=== PATIENT | female | born 1930 | race Hispanic/Latino ===

== ENCOUNTER 2019-01-30 17:38 | Emergency (ER) | payer MEDICARE, OTHER ==
--- NOTE | 2019-01-30 18:13 | Emergency Department Report ---
ED Fall HPI - General Chief Complaint: Fall Stated Complaint: FALL/BUMP TO HEAD Time Seen by Provider: 01/30/19 17:48 Source: patient, EMS Mode of arrival: Stretcher Limitations: No Limitations - History of Present Illness Initial Comments: 88-year-old female with past medical history dementia, nonverbal, hypertension, and previous hip surgery presents from [facility] for fall. As per EMS patient bumped her head against the wall. No LOC reported. No further history of present illness available at this time. As per daughter patient walks with a walker at her baseline has had multiple recent falls. - Related Data Allergies Allergy/AdvReac Type Severity Reaction Status Date / Time No Known Allergies Allergy Verified 01/30/19 17:41 ED Review of Systems ROS: Stated complaint: FALL/BUMP TO HEAD Other details as noted in HPI Comment: Unobtainable due to pts medical conditions ED Past Medical Hx - Past Medical History Previous Medical History?: Yes Hx Hypertension: Yes Hx Dementia: Yes (non-verbal) - Surgical History Past Surgical History?: Yes Additional Surgical History: "hip" - Social History Smoking Status: Unknown if ever smoked ED Physical Exam - General Limitations: No Limitations - Other Other exam information: General: No acute distress Head: Right temporal scalp hematoma without laceration Eyes: Normal appearance, Pupils equal and reactive to light, extraocular movemen ts intact ENT: Normal oropharynx Neck: Normal appearance, no grimace of posterior palpation Chest: Clear to auscultation bilaterally, no wheezes, rales, or crackles CV: Regular rate and rhythm Abdomen: soft, nontender, nondistended, no rebound or guarding Back: Nontender Extremity: Normal inspection, full range of motion, nontender Neuro: Alert, nonverbal, makes eye contact, moves all extremities with equal strength and grossly intact sensation Skin: bruise to lateral left thigh, smaller bruise to right thigh ED Course Vital Signs 01/30/19 01/30/19 17:54 19:30 Temperature 98.1 F 98.3 F Pulse Rate 81 82 Respiratory 18 13 Rate Blood Pressure 113/87 123/72 [Left] O2 Sat by Pulse 100 100 Oximetry - Reevaluation(s) Reevaluation #1: 01/30/19 21:42 Daughter at bedside. She is a R in. She was informed that we are still waiting imaging results and patient would need to go back to CT for pelvis/hip CT. She was also formed of mild dehydration as indicated by last. I discussed case with weaving machine operator carbon setter with plan to admit overnight for hydration. Daughter denies admission and requests fluid in the ED with plan [facility]. Reevaluation #2: 01/30/19 22:49 RN not able to establish IV pt is a difficult stick daughter refused other attempts not that ct reports are back water and food provided. ED Medical Decision Making - Lab Data Result diagrams: 01/30/19 18:21 01/30/19 18:21 Lab Results 01/30/19 01/30/19 01/30/19 Range/Units 18:21 18:21 18:35 WBC 13.7 H (4.5-11.0) K/mm3 RBC 4.35 (3.65-5.03) M/mm3 Hgb 14.3 (10.1-14.3) gm/dl Hct 41.0 (30.3-42.9) % MCV 94 (79-97) fl MCH 33 H (28-32) pg MCHC 35 H (30-34) % RDW 14.7 (13.2-15.2) % Plt Count 330 (140-440) K/mm3 Lymph % (Auto) 32.2 (13.4-35.0) % Dickenson % (Auto) 6.7 (0.0-7.3) % Eos % (Auto) 3.0 (0.0-4.3) % Baso % (Auto) 0.9 (0.0-1.8) % Lymph # 4.4 (1.2-5.4) K/mm3 Dickenson # 0.9 H (0.0-0.8) K/mm3 Eos # 0.4 (0.0-0.4) K/mm3 Baso # 0.1 (0.0-0.1) K/mm3 Seg Neutrophils % 57.2 (40.0-70.0) % Seg Neutrophils # 7.8 H (1.8-7.7) K/mm3 Sodium 153 H (137-145) mmol/L Potassium 4.1 (3.6-5.0) mmol/L Chloride 117.9 H (98-107) mmol/L Carbon Dioxide 19 L (22-30) mmol/L Anion Gap 20 mmol/L BUN 46 H (7-17) mg/dL Creatinine 1.6 H (0.7-1.2) mg/dL Estimated GFR 30 ml/min BUN/Creatinine Ratio 29 % Glucose 109 H (65-100) mg/dL POC Glucose 128 H (70-105) Calcium 9.8 (8.4-10.2) mg/dL - Radiology Data Radiology results: report reviewed CT head/brain wo con INDICATION: fall, head injury, dementia. TECHNIQUE: All CT scans at this location are performed using CT dose reduction for ALARA by means of automated exposure control. COMPARISON: None available. FINDINGS: Paranasal and mastoid sinuses appear clear. No cranial fracture or significant extracranial soft tissue swelling. Extensive but age-appropriate cortical involution and chronic white matter ischemic change. No mass, hemorrhage or other acute abnormality. IMPRESSION: 1. Chronic changes, but no acute abnormality. CT CERVICAL SPINE WITHOUT CONTRAST INDICATION: fall, head injury, dementia. TECHNIQUE: Axial CT images of the spine were obtained. Sagittal and coronal reformatted images were produced. All CT scans at this location are performed using CT dose reduction for ALARA by means of automated exposure control. COMPARISON: None available. FINDINGS: ACUTE FRACTURE(S) OR SUBLUXATION: None. SPINAL DEGENERATIVE CHANGES: Mild degenerative disc disease at C4-5, C5-6, and C6-7 with mild disc height loss and endplate osteophyte formation. Mild DJD in the atlantodental articulation. PARASPINAL SOFT TISSUES: No soft tissue swelling or other acute abnormalities. ADDITIONAL FINDINGS: No significant additional findings. IMPRESSION: 1. No acute fracture or subluxation in the spine in neutral position. LEFT FEMUR 4 VIEWS INDICATION: fall bruise. COMPARISON: No relevant prior imaging study available. FINDINGS: There is subtle cortical offset at the subcapital left femoral neck which is concerning for minimally impacted left femoral neck fracture. This could be artifactual related to prominent osteophytes. CT would be useful to better characterize this. No other abnormalities concerning for acute fracture are seen. 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 There is subjective osteopenia. IMPRESSION: 1. Irregularity at the subcapital left femoral neck may be artifactual related to prominent osteophytes. However, this is concerning for minimally impacted subcapital left femoral neck fracture. CT is recommended to better characterize this. XR hip 2-3V LT INDICATION / CLINICAL INFORMATION: fall, bruise. COMPARISON: None available. FINDINGS: BONES/JOINT(S): No acute fracture or subluxation. Mild diffuse bone demineralization. Advanced left and moderate right hip DJD. SOFT TISSUES: No significant abnormality. ADDITIONAL FINDINGS: None. CT pelvis wo con INDICATION: Possble left fem neck fxt on xray. TECHNIQUE: All CT scans at this location are performed using CT dose reduction for ALARA by means of automated exposure control. COMPARISON: Plain radiograph done earlier today FINDINGS: Bones are osteopenic, and there is considerable hypertrophic degenerative changes throughout the pelvis and both hips. However, I cannot identify an acute fracture. IMPRESSION: 1. No acute fracture. - Medical Decision Making pt with dehydration difficult to obtain IV access daughter is a nurse and refused further IV attempts and admission for hydration Daughter already called over to the prison and plan is to increase her fluid intake no acute fracture or hemorrhage is identified patient would be discharged back to prison as per daughter's request - Differential Diagnosis fall, fracture, sprain, contusion, ICH Critical Care Time: No Critical care attestation.: If time is entered above; I have spent that time in minutes in the direct care of this critically ill patient, excluding procedure time. ED Disposition Clinical Impression: Dehydration, Fall, Scalp contusion Disposition: DC-01 TO HOME OR SELFCARE Is pt being admited?: No Does the pt Need Aspirin: No Condition: Stable Instructions: Fall Prevention for Older Adults (ED), Dehydration (ED), Scalp Contusion in Adults (ED) Additional Instructions: Take the medication as prescribed. Follow-up with your doctor or the doctor/clinic provided. Return is symptoms worsen as indicated by your discharge instructions. Referrals: PRIMARY CARE, [Primary Care Provider] - 2-3 Days Time of Disposition: 22:54
[2019-01-30 18:34] LABS: Basophils # (Auto) 0.1 K/mm3 (0.0-0.1); Basophils % (Auto) 0.9 % (0.0-1.8); Eosinophils # (Auto) 0.4 K/mm3 (0.0-0.4); Hemoglobin 14.3 gm/dl (10.1-14.3); Lymphocytes # (Auto) 4.4 K/mm3 (1.2-5.4); Lymphocytes % (Auto) 32.2 % (13.4-35.0); Mean Corpuscular HGB Conc 35 % (30-34); Mean Corpuscular Volume 94 fl (79-97); Monocytes # (Auto) 0.9 K/mm3 (0.0-0.8); Monocytes % (Auto) 6.7 % (0.0-7.3); Platelet Count 330 K/mm3 (140-440); Red Blood Count 4.35 M/mm3 (3.65-5.03); Red Cell Distribution Width 14.7 % (13.2-15.2)
[2019-01-30 18:53] LABS: Calcium 9.8 mg/dL (8.4-10.2)
--- NOTE | 2019-01-30 20:07 | XRay Report ---
XR hip 2-3V LT INDICATION / CLINICAL INFORMATION: fall, bruise. COMPARISON: None available. FINDINGS: BONES/JOINT(S): No acute fracture or subluxation. Mild diffuse bone demineralization. Advanced left a nd moderate right hip DJD. SOFT TISSUES: No significant abnormality. ADDITIONAL FINDINGS: None. Signer Name: Moy Field MD Signed: 01/30/2019 8:03 PM Workstation Name: [id number]
--- NOTE | 2019-01-30 20:08 | XRay Report ---
LEFT FEMUR 4 VIEWS INDICATION: fall bruise. COMPARISON: No relevant prior imaging study available. FINDINGS: There is subtle cortical offset at the subcapital left femoral neck which is concerning for minimally impacted left femoral neck fracture. This could be artifactual related to prominent osteophytes. CT would be useful to better characterize this. No other abnormalities concerning for acute fracture are seen. 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 There is subjective osteopenia. IMPRESSION: 1. Irregularity at the subcapital left femoral neck may be artifactual related to prominent osteophyt es. However, this is concerning for minimally impacted subcapital left femoral neck fracture. CT is r ecommended to better characterize this. Signer Name: Tony Garza MD Signed: 01/30/2019 8:04 PM Workstation Name: [id number]
--- NOTE | 2019-01-30 21:14 | Cat Scan Report ---
CT CERVICAL SPINE WITHOUT CONTRAST INDICATION: fall, head injury, dementia. TECHNIQUE: Axial CT images of the spine were obtained. Sagittal and coronal reformatted images were produced. Al l CT scans at this location are performed using CT dose reduction for ALARA by means of automated exp osure control. COMPARISON: None available. FINDINGS: ACUTE FRACTURE(S) OR SUBLUXATION: None. SPINAL DEGENERATIVE CHANGES: Mild degenerative disc disease at C4-5, C5-6, and C6-7 with mild disc he ight loss and endplate osteophyte formation. Mild DJD in the atlantodental articulation. PARASPINAL SOFT TISSUES: No soft tissue swelling or other acute abnormalities. ADDITIONAL FINDINGS: No significant additional findings. IMPRESSION: 1. No acute fracture or subluxation in the spine in neutral position. Signer Name: Moy Field MD Signed: 01/30/2019 9:09 PM Workstation Name: [id number]
[2019-01-30] MEDS ORDERED: NACL 0.45% 1000 ML 1,000 ML IV SCH (22:00)
--- NOTE | 2019-01-30 22:30 | Cat Scan Report ---
CT head/brain wo con INDICATION: fall, head injury, dementia. TECHNIQUE: All CT scans at this location are performed using CT dose reduction for ALARA by means of automated e xposure control. COMPARISON: None available. FINDINGS: Paranasal and mastoid sinuses appear clear. No cranial fracture or significant extracranial soft tiss ue swelling. Extensive but age-appropriate cortical involution and chronic white matter ischemic change. No mass, hemorrhage or other acute abnormality. IMPRESSION: 1. Chronic changes, but no acute abnormality. Signer Name: Miguel Keyes MD Signed: 01/30/2019 10:26 PM Workstation Name: [id number]
--- NOTE | 2019-01-30 22:37 | Cat Scan Report ---
CT pelvis wo con INDICATION: Possble left fem neck fxt on xray. TECHNIQUE: All CT scans at this location are performed using CT dose reduction for ALARA by means of automated e xposure control. COMPARISON: Plain radiograph done earlier today FINDINGS: Bones are osteopenic, and there is considerable hypertrophic degenerative changes throughout the pelv is and both hips. However, I cannot identify an acute fracture. IMPRESSION: 1. No acute fracture. Signer Name: Miguel Keyes MD Signed: 01/30/2019 10:33 PM Workstation Name: [id number]
[2019-01-30 23:17] VITALS: BP 130/78
== END 2019-01-31 01:10 | disposition home or self-care (01) ==
LOC: ED 17:38
DX: S00.03XA Contusion of scalp, initial encounter (principal); E86.0 Dehydration; I10 Essential (primary) hypertension; M54.2 Cervicalgia; M25.552 Pain in left hip; M25.562 Pain in left knee; W22.01XA Walked into wall, initial encounter; Y93.89 Activity, other specified; Y92.89 Other specified places as the place of occurrence of the external cause; Y99.8 Other external cause status
CPT/HCPCS: 36415; 70450; 72125; 72192; 73502; 73552; 80048; 82962; 85025; 99285; J7030